=== PATIENT | male | born 1975 | race Caucasian/White ===

== ENCOUNTER 2020-07-19 08:00 | Outpatient (RCR) | payer OTHER, SELFPAY | END 2020-07-20 10:34 | disposition home or self-care (01) | LOC: HO.PTCHIC 08:00 | PROVIDERS: PCP Pediatrics; Visit Provider Physician Assistant | DX: M54.2 Cervicalgia (principal); R20.2 Paresthesia of skin | CPT/HCPCS: 97012; 97014; 97110; 97140; 97162 ==

== ENCOUNTER 2020-11-01 09:00 | Outpatient (RCR) | payer OTHER, SELFPAY | END 2020-11-04 11:35 | disposition home or self-care (01) | LOC: HO.PTCHIC 09:00 | PROVIDERS: PCP Internal Medicine; Visit Provider Internal Medicine | DX: M54.9 Dorsalgia, unspecified (principal) | CPT/HCPCS: 97014; 97110; 97140; 97161 ==

== ENCOUNTER 2020-12-26 22:09 | Emergency (ER) | payer OTHER, SELFPAY ==
--- NOTE | ~2020-12-26 | XR_ITS ---
EXAMINATION: XR HAND, RIGHT CLINICAL INFORMATION: Injury with pain to the right hand. Swelling. COMPARISON: 01/23/2017 TECHNIQUE: 3 views of the right hand FINDINGS: There is a comminuted intra-articular fracture at the base of the first metacarpal. Mild ulnar displacement of an articular fragment. Overlying soft tissue swelling. No additional fractures. Joint spaces are maintained. XR/XR hand wrist RT IMPRESSION: Comminuted intra-articular fracture at the base of the first metacarpal.
[2020-12-26 22:13] VITALS: BP 147/96; PULSE 104; RESP 18; TEMP 36.6; O2SAT 98; BMI 31.5
--- NOTE | 2020-12-26 23:01 | ED_ITS ---
HPI - Extremity Injury (Upper) General Chief Complaint: Extremity Injury, Lower Stated Complaint: rt hand thumb swollen Time Seen by Provider: 12/26/20 22:32 Source: patient Mode of arrival: ambulatory Limitations: no limitations History of Present Illness complaint: injury to: right, hand and finger (thumb) Onset (ago): minute(s) (Prior to arrival) Other Extremity Injury: right: fingers (thumb), hand and wrist Other injuries: none Handedness: right Place: home Severity: severe Severity scale (1-10): >10 Relieving factors: none Exacerbating factors: movement of extremity and other (Palpation) Context: other (He was upset and slammed the tray into a brick wall and is unsure how he sustained the injury although thinks that he might of himself with the tray) Associated symptoms: denies other symptoms Related Data Previous Rx's Medication Instructions Recorded acetaminophen 500 mg tablet 1,000 mg PO QID PRN #14 tab 12/26/20 (Tylenol Extra Strength) ibuprofen 800 mg tablet 800 mg PO Q8H PRN #14 tab 12/26/20 oxycodone 5 mg tablet 5 mg PO Q6H PRN #14 tab 12/26/20 Allergies Allergy/AdvReac Type Severity Reaction Status Date / Time No Known Allergies Allergy Verified 12/26/20 22:12 [No Known Allergies*] Review of Systems Review of Systems: Constitutional : No Weight loss, No Fever, No Chills, No Night Sweats, No Fatigue, No Malaise ENT/Mouth : No Hearing loss, No Ear Pain, No Nasal Congestion, No Sinus Pain, No Hoarseness, No sore throat, No Rhinorrhea, No Swallowing Difficulty Eyes: No Eye Pain, No Swelling, No Redness, No Foreign Body, No Discharge, No Vision Changes Cardiovascular : No Chest Pain, No SOB, No Dyspnea on Exertion, No Orthopnea, No Edema, No Palpitations Respiratory : No Cough, No Sputum, No Wheezing, No Smoke Exposure, No Dyspnea Gastrointestinal : No Nausea, No Vomiting, No Diarrhea, No Constipation, No abdominal Pain, No Hematochezia, No Melena Genitourinary : no irregular bleeding, No Dysuria, No Urinary Frequency, No Hematuria, No Urinary Incontinence, No Urgency, No Flank Pain, No Urinary Flow Changes, No Hesitancy Musculoskeletal : + right hand and wrist joint pain/swelling, No Myalgias Skin : No Skin Lesions, No rash Neuro : No Weakness, No Numbness, No Paresthesias, No Loss of Consciousness, No Dizziness, No Headache Psych : No Anxiety/Panic, No Depression, No SI/HI/AH/VH, No Social Issues, Heme/Lymph: No Bruising, No Bleeding,No Lymphadenopathy Endocrine : No Polyuria, No Polydipsia, No Temperature Intolerance Yes all other systems are reviewed and are negative [facility] Past Medical History Attestation statement: The following information was validated with the patient. Social History Social History Advance Directives: No Physical Exam Vital Signs: Vital Signs: Last Vital Signs Temp 97.9 F 12/26/20 22:13 Pulse 104 H 12/26/20 22:13 Resp 18 12/26/20 22:13 BP 147/96 H 12/26/20 22:13 Pulse Ox 98 12/26/20 22:13 Body Mass Index 31.5 vital signs have been reviewed as normal and appeared to be correct. Blood pressure normal Heart rate normal. Respiration rate normal. Temperature normal. Oxygen saturation normal. Appearance: Alert. Oriented X3. No acute distress. Head: Normal external exam. Normocephalic. Atraumatic. Eyes: PERRLA. EOMI. Conjunctiva and sclera normal. Eyelids normal. ENT: Pharynx normal. Uvula midline. Moist mucous membranes. Neck: Normal inspection. Neck supple. FROM. CVS: Normal heart rate and rhythm. Respiratory: No respiratory distress. Painless inspiration. Skin: Skin warm and dry. Normal skin color. Normal skin turgor. No rashes/lesions/lacerations noted. Extremities: Patient with severe tenderness to palpation to right thumb at the proximal radial aspect of the thumb and the radial aspect of the wrist with limited range of motion of the right wrist/thumb with soft tissue swelling. No ecchymoses noted. No obvious ligamentous or tendon injury. Not consistent with wrist drop. Otherwise he has full range of motion of all other fingers. Otherwise all other Extremities exhibit normal range of motion. and nontender. Neuro: Oriented X 3. No motor deficit. No sensory deficit. Reflexes normal. Normal steady gait. No focal neuro deficits noted. Vascular: + radial pulses/+ 2 distal pedal pulses/+2 dorsalis pedis b/l. Normal cap refill. No cyanosis noted to upper extremity nails and lower extremity toes nails. Course Course Course Narrative: 45-year-old male presenting to the ED with complaints of right hand/thumb/wrist pain after he slammed the tray into a withdrawal after being upset. Denies head injury or loss of consciousness or any other injury complaints or concerns. X-ray obtained and revealed a comminuted intra- articular fracture at the base of the 1st metacarpal. He is neurovascularly intact. No signs of infection. He is up-to-date on tetanus. No obvious ligamentous or tendon injury. Not consistent with wrist drop. He is right-hand dominant. I consulted with orthopedic Dr. Gutierres is the hand surgeon and she reported that he will need outpatient surgery therefore will place in a thumb spica treat symptomatically and instructed to call Dr. Gutierres is office this week to follow-up for outpatient surgery. And to return if any new or worsening symptoms. Patient understands agrees with this plan. MDM - Extremity Injury (Upper) Medical Records Attestation: I reviewed the patient's medical records. Imaging Data Right hand/wrist x-ray: Attestation: I personally reviewed and interpreted this imaging study as follows: Radiologist's impression: FINDINGS: There is a comminuted intra-articular fracture at the base of the first metacarpal. Mild ulnar displacement of an articular fragment. Overlying soft tissue swelling. No additional fractures. Joint spaces are maintained. XR/XR hand wrist RT IMPRESSION: Comminuted intra-articular fracture at the base of the first metacarpal.? Procedures Orthopedic Splinting/Casting Injury #1: Side: right Upper Extremity Injury Location: wrist, hand and finger Upper Extremity Immobilizer: thumb spica Discharge Plan Discharge Clinical Impression: Fracture of first metacarpal bone of right hand Qualifiers: Encounter type: initial encounter Fracture type: closed Metacarpal location: base Fracture morphology: other fracture Fracture alignment: displaced Qualified Code(s): S62.231A - Other displaced fracture of base of first metacarpal bone, right hand, initial encounter for closed fracture Patient Disposition: Home, Self-Care Instructions: Hand Fracture (ED), Splint Care (ED) Additional Instructions: TECHNIQUE: 3 views of the right hand? FINDINGS: There is a comminuted intra-articular fracture at the base of the first metacarpal. Mild ulnar displacement of an articular fragment. Overlying soft tissue swelling. No additional fractures. Joint spaces are maintained. XR/XR hand wrist RT IMPRESSION: Comminuted intra-articular fracture at the base of the first metacarpal.? Prescriptions: New ibuprofen 800 mg tablet 800 mg PO Q8H PRN (Reason: pain) Qty: 14 RF: 0 acetaminophen [Tylenol Extra Strength] 500 mg tablet 1,000 mg PO QID PRN (Reason: fever or pain) Qty: 14 RF: 0 oxycodone 5 mg tablet 5 mg PO Q6H PRN (Reason: pain) Qty: 14 RF: 0 Referrals: Christine Newell MD [Physician] - 1 day (Call tomorrow to make a follow-up appointment this week) Romulo Julian MD [Primary Care Provider] - 2 days Stand Alone Forms: Work/School Release Print Language: Frisian
[2020-12-26] MEDS: Ibuprofen 800 MG TABLET PO (23:16)
== END 2020-12-26 23:51 | disposition home or self-care (01) ==
PROVIDERS: Emergency Provider Internal Medicine; PCP Pediatrics
DX: S62.231A Other displaced fracture of base of first metacarpal bone, right hand, initial encounter for closed fracture (principal); M79.641 Pain in right hand; Y29.XXXA Contact with blunt object, undetermined intent, initial encounter; Y93.9 Activity, unspecified; Y92.9 Unspecified place or not applicable; Y99.9 Unspecified external cause status; Z79.899 Other long term (current) drug therapy
CPT/HCPCS: 29125; 73110; 73130; 99284

== ENCOUNTER 2020-12-28 11:02 | Outpatient (REF) | payer OTHER, SELFPAY ==
--- NOTE | ~2020-12-28 | XR_ITS ---
EXAMINATION: XR HAND, RIGHT CLINICAL INFORMATION: Fracture COMPARISON: Previous x-ray most recent 12/26/2020 TECHNIQUE: PA, lateral, and oblique views of the right thumb FINDINGS: There is a comminuted minimally displaced fracture of the base of the first metacarpal bone intra-articular with the [facility] joint. This appears unchanged from 12/26/2020 exam. There is a lucency and peripheral or sclerosis or cortical thickening in the mid portion of the scaphoid bone. Appearance is questionable for changes related to old trauma.. Soft tissues are unremarkable. XR/XR hand RT min 3V IMPRESSION: No change in fracture of the base of the first metacarpal bone from previous exam. Question evidence of old trauma to the scaphoid bone.
--- NOTE | ~2020-12-28 | XR_ITS ---
EXAMINATION: XR WRIST CLINICAL INFORMATION: M25.531 - Pain in right wrist COMPARISON: Right hand 12/28/2020, right hand wrist 12/26/2020. TECHNIQUE: The right wrist is imaged and 4 views including scaphoid projection. FINDINGS: There is a comminuted fracture again noted base first metacarpal with extension to the articular surface and mild angulation distal fragment. Alignment is similar to prior studies. The remainder the bony structures appear intact. There are no additional fractures. The scaphoid shows no acute or healing fracture. There is a small benign-appearing cyst mid waist navicular measuring just under 5 mm. The ulnar variance is neutral. The pronator quadratus fat pad appears normal. XR/XR wrist RT w scaphoid IMPRESSION: 1. Comminuted fracture base first metacarpal similar in alignment to prior studies. 2. No additional fractures demonstrated. 3. Small benign cyst mid waist carpal navicular.
== END 2020-12-28 11:03 | disposition home or self-care (01) ==
LOC: HO.HOSX 11:02
PROVIDERS: Visit Provider Orthopaedic Surgery
DX: Z01.818 Encounter for other preprocedural examination (principal); S62.211A Bennett's fracture, right hand, initial encounter for closed fracture; M25.531 Pain in right wrist
CPT/HCPCS: 73110; 73130; 99202

== ENCOUNTER 2021-01-04 12:23 | Day surgery (SDC) | payer OTHER, SELFPAY ==
--- NOTE | 2021-01-03 13:31 | HO.ANESPROP2 ---
Documented by User: Melia Mcleod NP 01/03/21 13:31 HPI - Anesthesia Eval Consult details Narrative: 45yo M for Right 1st Metacarpal ORIF vs CRPP PMFSH Active Problems Active Problems: All Active Problems (Updated 12/28/20 @ 16:28 by Christine Newell MD) Hernandez fracture of right hand (Acute) Social History Social History Patient Tobacco Use Status: Never used Tobacco Use of substances other than those prescribed or required for medical reasons: Yes Substance Use Frequency: Daily Are you DNR?: No Advance Directives: No Advance Directives Information Provided: Yes Current occupational status: unemployed 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 Meds Allergies Allergy/AdvReac Type Severity Reaction Status Date / Time No Known Allergies Allergy Verified 01/04/21 12:49 [No Known Allergies*] Home Medications Medication Instructions Recorded Confirmed Last Taken Type levothyroxine DAILY MRX1 01/04/21 01/04/21 06:00 History Exam Exam Date and Time: January 03, 2021 133 Assessment and Plan Assessment Anesthesia Assessment: Chart Reviewed Documented by User: Seferino Carpio MD 01/04/21 14:30 PMFSH Family History Family history of problems with anesthesia: No Surgical History History of Problems with Anesthesia: No Social History Social History Patient Tobacco Use Status: Never used Tobacco Use of substances other than those prescribed or required for medical reasons: Yes Substance Use Frequency: Daily Are you DNR?: No Advance Directives: No Advance Directives Information Provided: Yes Current occupational status: unemployed 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 Meds Allergies Allergy/AdvReac Type Severity Reaction Status Date / Time No Known Allergies Allergy Verified 01/04/21 12:49 [No Known Allergies*] Home Medications Medication Instructions Recorded Confirmed Last Taken Type levothyroxine DAILY MRX1 01/04/21 01/04/21 06:00 History Exam Airway Mallampati Class: II TM Dist: >3cm Neck ROM: Full Loose/Missing/Broken Teeth: No Heart: rrr+[id number] Lungs: cta b/l Assessment and Plan Assessment Anesthesia Assessment: Anesthesia Plan Discussed Final Anesthetic Review Family History of Problems with Anesthesia: No History of Problems with Anesthesia: No NPO: Yes ASA Class: II Final Preanesthetic Review: No Changes in Pt Med Stat, Meds/Allgs Chart Reviewed, Consent Obtained/Reviewed and Anes Risks/Benef Reviewed Patient Risk: Intermediate Procedure Risk: Low Assessment/Block/Sedation in SS: Assess/Block/Sedation-SS Anesthetic Plan Anesthetic Plan: GA and Agree w/ Assess. and Plan Disposition: Standard PACU
[2021-01-04] VITALS (9 sets, daily range): BP systolic 126–159; BP diastolic 81–100; PULSE 67–78; RESP 16–20; TEMP 36.3–36.7; O2SAT 94–99; BMI 31.5
--- NOTE | ~2021-01-04 | FL_ITS ---
EXAMINATION: XR FLUOROSCOPY WITH IMAGES CLINICAL INFORMATION: Fracture COMPARISON: Previous x-ray 12/28/2020 TECHNIQUE: Fluoroscopy performed by Bhavik. Fluoroscopy time: 106 seconds DAP: [id number] Gycm2 Images: 6 FINDINGS: Images demonstrate 3 K wires or pins transfixing the fracture of the base of the first metacarpal bone. FL/FL guidance in OR IMPRESSION: Fluoroscopic guidance for ORIF of right first metacarpal fracture.
[2021-01-04] MEDS: Lactated Ringers 1,000 ML 100 ML IVCONT (13:27)
--- NOTE | 2021-01-04 15:32 | MHC.SHP ---
Pre-Procedural Eval Section A Date of Service: 01/04/21 The patient is an INPATIENT: No Changes since office visit: No Cold of Flu in the past 2 weeks, No New Medical Problems, No Changes in Medication and No Patient answered all questions The History & Physical has been completed within 30 days and I have reviewed it.: Yes Section B Chief Complaint: fx metacarpal bone Allergies: Allergies Allergy/AdvReac Type Severity Reaction Status Date / Time No Known Allergies Allergy Verified 01/04/21 12:49 [No Known Allergies*] Plan I have reviewed the history and physical and performed a pertinent physical examination on my patient. No changes have occurred unless specified.
--- NOTE | 2021-01-04 15:33 | W.PM.OPN ---
Operative Note Operative Note Date of Service: 01/04/21 Narrative: Operative Note Narrative: Preop diagnosis: 1. Right 1st Metacarpal base fracture, intra-articular and comminuted Postop diagnosis: Same Procedure: 1. Right 1st Metacarpal base fracture closed reduction percutaneous pinning Surgeon: Christine Newell MD Anesthesia: General Findings: Metacarpal fracture Implants: 0.062 K-wires times 1, 0.054 K-wire x1, 0.045 K-wire x1 Tourniquet time: None EBL: Minimal Specimen: None Drains: None Complications: None Disposition: Brought to the recovery room in stable condition Plan: Follow-up in 10-14 days for a wound check, postop radiographs and for placement in a short-arm thumb spica cast Anticipate K-wire removal in 5 weeks based on interval bony healing Educate the patient that full fracture healing anticipated in approximately 8-12 weeks. Indications: The patient is 45 years old with a closed intra-articular comminuted fracture of the right 1st metacarpal base . The risks and benefits of operative treatment, including but not limited to risk of damage to blood vessels, nerves, tendons, infection, recurrence, delayed or nonunion of fracture, persistent pain or numbness, incomplete resolution of preoperative symptoms, or need for further surgery were discussed with the patient and they wished to proceed with surgery. Procedure: Once consent was obtained patient was brought back to the operating suite and placed in the operating table in a supine position. . Perioperative antibiotics and general anesthesia was administered by the anesthesia team. A tourniquet was applied to the proximal aspect of the right upper extremity and the limb was prepped and draped in a standard surgical fashion. The Tourniquet was not inflated during the case. The FluoroScan was used during the case to assist with our fracture reduction and placement of all implants. A closed reduction was performed on the patient's right 1st metacarpal base fracture. While holding the fracture in a reduced position I placed a single 0.062 K-wire retrograde through the shaft of the 1st metacarpal extending proximally across the fracture site to the base of the 1st metacarpal, then across the basal joint and into the trapezium. A 0.045 K-wire was placed in the dorsal shaft of the 1st metacarpal and advanced retrograde and volarly, capturing the volar articular fragment. A 0.054 K-wire was then passed through the ulnar aspect of the shaft, retrograde and across the transverse fracture site to the base of the 1st metacarpal, then advanced across the basal joint and into the trapezium. Fracture alignment was assessed for both angular and rotational malalignment. Once satisfied with our fracture reduction and implant placement, the K-wires were bent and cut short and pin caps applied. Final fluoroscopic images were then obtained. The wounds were copiously irrigated with normal saline. Some 1% lidocaine with epinephrine was then infiltrated about the basal joint of the right thumb, and then across the base of the thumb performing a block of the superficial radial nerve to the dorsal aspect of the thumb. ASterile dressing and short arm thumb spica splint was applied. The patient appears to have tolerated the procedure well and with no complications. All digits were well vascularized at the conclusion of the case.
[2021-01-04] MEDS: fentaNYL citrate/PF 100 MCG/2 ML VIAL 50 MCG IVPUSH ×2 (15:55→16:00)
[2021-01-04] MEDS: oxyCODONE HCl Immed Release 5 MG TABLET 10 MG PO (15:57)
== END 2021-01-04 16:39 | disposition home or self-care (01) ==
PROVIDERS: PCP Pediatrics; Visit Provider Orthopaedic Surgery
PROC: (CPT 26615; principal; 2021-01-04 14:00)
DX: S62.221A Displaced Rolando's fracture, right hand, initial encounter for closed fracture (principal); W22.09XA Striking against other stationary object, initial encounter; Y93.89 Activity, other specified; Y92.9 Unspecified place or not applicable; Y99.8 Other external cause status; J45.909 Unspecified asthma, uncomplicated
CPT/HCPCS: 26650; J0690; J1100; J1170; J2250; J2405; J3010

== ENCOUNTER 2021-01-16 12:47 | Outpatient (REF) | payer OTHER, SELFPAY ==
--- NOTE | ~2021-01-16 | XR_ITS ---
EXAMINATION: XR HAND, RIGHT CLINICAL INFORMATION: Right hand pain. COMPARISON: 12/28/2020 TECHNIQUE: PA, lateral, and oblique views of the right hand. FINDINGS: Since the prior exam which demonstrated a comminuted displaced fracture at the base of the 1st metacarpal with extension into the [facility] joint, 3 pins have been placed through the metacarpal, 2 of which extend into the greater multangular. A plaster splint is in place obscuring some detail. No new fractures are seen. A cyst is noted in the scaphoid. XR/XR hand RT min 3V IMPRESSION: Postoperative changes with 3 pins through the 1st metacarpal fracture.
== END 2021-01-16 12:48 | disposition home or self-care (01) ==
LOC: HO.HOSX 12:47
PROVIDERS: Visit Provider Physician Assistant
DX: S62.221D Displaced Rolando's fracture, right hand, subsequent encounter for fracture with routine healing (principal)
CPT/HCPCS: 29085; 73130; 99212

== ENCOUNTER 2021-01-18 08:25 | Outpatient (REF) | payer OTHER, SELFPAY | END 2021-01-18 08:26 | disposition home or self-care (01) | LOC: HO.HOSX 08:25 | PROVIDERS: Visit Provider Orthopaedic Surgery | DX: Z13.89 Encounter for screening for other disorder (principal) ==

== ENCOUNTER 2021-01-21 05:24 | Emergency (ER) | payer OTHER, SELFPAY ==
--- NOTE | ~2021-01-21 | XR_ITS ---
EXAMINATION: XR HAND, RIGHT CLINICAL INFORMATION: Shooting pain around the palm. COMPARISON: January 16, 2021 and studies dating back to December 26, 2020 TECHNIQUE: PA, lateral, and oblique views of the right hand. FINDINGS: Imaging through a cast performed. There has been no change in alignment of the fractured base of the first metacarpal with [address] Fracture line is not well seen with overlying cast. XR/XR hand RT 2V IMPRESSION: No change in alignment or appearance of fracture base of the first metacarpal.
[2021-01-21 05:38] VITALS: BP 123/88; PULSE 73; RESP 18; TEMP 36.3; O2SAT 96; BMI 68.0
--- NOTE | 2021-01-21 08:02 | ED.EXTPRO ---
HPI - Extremity Problem General Chief complaint: Extremity Injury, Upper Stated complaint: post surgery complication/thumb pain Time Seen by Provider: 01/21/21 05:27 Source: patient Mode of arrival: ambulatory Limitations: no limitations History of Present Illness HPI Narrative: This is a 45 years old male presented to the emergency department complaining of of right hand pain. The pain fracture or is a right 1st metacarpal bone he underwent surgery on January 06, he was seen in the orthopedic clinic on SaturdayJanuary 16 his cast was removed and the another cast was placed. He states that he has pain now that he is unbearable Complaint: extremity pain Onset (ago): minute(s) Pain Consistency: constant Location: right and upper extremity Relieving factors: nothing Related Data Home Medications Medication Instructions Recorded Confirmed levothyroxine DAILY MRX1 01/04/21 Previous Rx's Medication Instructions Recorded acetaminophen 500 mg tablet 1,000 mg PO QID PRN #14 tab 12/26/20 (Tylenol Extra Strength) ibuprofen 800 mg tablet 800 mg PO Q8H PRN #14 tab 12/26/20 oxycodone 5 mg tablet 5 mg PO Q6H PRN #14 tab 12/26/20 ibuprofen 600 mg tablet 600 mg PO TID PRN #30 tab 01/04/21 oxycodone-acetaminophen 5 mg-325 1 - 2 tab PO Q6H PRN #30 tab 01/04/21 mg tablet cephalexin 500 mg capsule 500 mg PO Q8H #21 cap 01/21/21 oxycodone 5 mg capsule 5 mg PO Q8H PRN #12 cap 01/21/21 Allergies Allergy/AdvReac Type Severity Reaction Status Date / Time No Known Allergies Allergy Verified 01/16/21 14:03 [No Known Allergies*] Review of Systems Constitutional: Constitutional: Reports no additional constitutional complaints ENT: Reports system reviewed and no additional complaints, except as documented Cardiovascular: Cardiovascular: Reports no additional cardiovascular complaints and Denies dyspnea Respiratory: Respiratory: Denies dyspnea Musculoskeletal: Musculoskeletal: Reports no additional musculoskeletal complaints Psychiatric: Psychiatric: Reports no additional psychiatric complaints PMFSH Social History Social History Patient Tobacco Use Status: Never used Tobacco Advance Directives: No Advance Directives Information Provided: Yes Current occupational status: unemployed 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 Physical Exam Vital Signs: Vital Signs: Last Vital Signs Temp 98.2 F 01/21/21 09:59 Pulse 63 01/21/21 09:59 Resp 16 01/21/21 09:59 BP 117/88 01/21/21 09:59 Pulse Ox 96 01/21/21 09:59 BMI result Body Mass Index 68.0 Const: General: cooperative, healthy appearing, comfortable and no acute distress Nutritional Appearance: average body habitus Orientation/consciousness: patient oriented x3 HENMT: Head: Yes normal to inspection Face and sinus: Yes normal facial exam Mouth: Normal oral and palatal mucosa present Throat: Yes posterior oropharynx normal Neck: Neck: Yes normal visual inspection, Yes full ROM and Yes no lymphadenopathy Chest: Chest palpation & inspection: normal inspection of the chest Resp: Effort & Inspection: normal respiratory effort Auscultation: clear to auscultation bilaterally Cardio: Jugular venous distension: no JVD Rate: regular rate Rhythm: regular rhythm GI: Inspection: Yes normal to inspection Palpation (GI): Soft to palpation, nontender and no guarding Neuro: General: patient oriented x3 Extrem: Other: Examination the right upper extremity shows a right short arm cast he has good circulation in the finger Course Course Course Narrative: spoke with Ortho service ASUNCION Roman she advised to open cast ,cast was opened bivalve,wound looks well ,we send picture of the wound to ELENITA ROLAND via tiger text ; OK to d/c she will see pt Saturday she reccomend also po AB MDM - Extremity (Nontraumatic) Imaging Data hand: Radiologist's impression: EXAMINATION: XR HAND, RIGHT CLINICAL INFORMATION: Shooting pain around the palm.? COMPARISON: January 16, 2021 and studies dating back to December 26, 2020 TECHNIQUE: PA, lateral, and oblique views of the right hand. FINDINGS: Imaging through a cast performed. There has been no change in alignment of the fractured base of the first metacarpal with [address] Fracture line is not well seen with overlying cast. XR/XR hand RT 2V IMPRESSION: No change in alignment or appearance of fracture base of the first metacarpal. Dictated By: Varghese Butts MD Signed By: <Electr Discharge Plan Discharge Clinical Impression: Cast discomfort, Fracture of hand, closed Patient Disposition: Home, Self-Care Instructions: Cast Care (ED) Prescriptions: New oxycodone 5 mg capsule 5 mg PO Q8H PRN (Reason: pain) Qty: 12 RF: 0 cephalexin 500 mg capsule 500 mg PO Q8H Qty: 21 RF: 0 No Action ibuprofen 800 mg tablet 800 mg PO Q8H PRN (Reason: pain) Qty: 14 RF: 0 acetaminophen [Tylenol Extra Strength] 500 mg tablet 1,000 mg PO QID PRN (Reason: fever or pain) Qty: 14 RF: 0 oxycodone 5 mg tablet 5 mg PO Q6H PRN (Reason: pain) Qty: 14 RF: 0 levothyroxine 150 mg tablet DAILY MRX1 RF: 0 oxycodone-acetaminophen 5-325 mg tablet 1 - 2 tab PO Q6H PRN (Reason: pain) Qty: 30 RF: 0 ibuprofen 600 mg tablet 600 mg PO TID PRN (Reason: pain) Qty: 30 RF: 0 Referrals: Christine Newell MD [Physician] - 2 days Interventions: ED Discharge Assessment Last Done: 01/21/21 10:41 Discharge Date/Time: 01/21/21 10:44
[2021-01-21] MEDS: oxyCODONE HCl Immed Release 5 MG TABLET 10 MG PO (08:08)
[2021-01-21 09:59] VITALS: BP 117/88; PULSE 63; RESP 16; TEMP 36.8; O2SAT 96
== END 2021-01-21 10:44 | disposition home or self-care (01) ==
PROVIDERS: Emergency Provider Emergency Medicine; PCP Pediatrics
DX: M79.641 Pain in right hand (principal); S62.201D Unspecified fracture of first metacarpal bone, right hand, subsequent encounter for fracture with routine healing; X58.XXXD Exposure to other specified factors, subsequent encounter; Z46.89 Encounter for fitting and adjustment of other specified devices
CPT/HCPCS: 73120; 99283; 99284

== ENCOUNTER → 2021-01-23 12:52 | Outpatient (BNVA) | payer OTHER, SELFPAY | PROVIDERS: PCP Pediatrics; Visit Provider Physician Assistant | DX: S62.221D Displaced Rolando's fracture, right hand, subsequent encounter for fracture with routine healing (principal) | CPT/HCPCS: 99212 ==

== ENCOUNTER 2021-02-06 03:17 | Emergency (ER) | payer OTHER, SELFPAY ==
--- NOTE | ~2021-02-06 | XR_ITS ---
EXAMINATION: XR HAND, RIGHT CLINICAL INFORMATION: Question fracture COMPARISON: 01/21/2021 TECHNIQUE: Four views of the right hand. FINDINGS: Fine osseous and soft tissue detail are obscured by overlying casting material. [address] at the base of the first metacarpal fracture. Hardware intact. Alignment maintained. There may be slight widening of the scapholunate interval. This is unchanged. No new fractures are seen. XR/XR hand RT min 3V IMPRESSION: Fixation hardware at the first metacarpal. Alignment is maintained. No new fractures.
[2021-02-06 04:34] VITALS: BP 141/90; PULSE 75; RESP 18; TEMP 36.3; O2SAT 98; BMI 25.8
--- NOTE | 2021-02-06 07:34 | ED.EXTPRO ---
HPI - Extremity Problem General Chief complaint: Extremity Injury, Upper Stated complaint: further injury to broken arm Time Seen by Provider: 02/06/21 07:19 Source: patient Mode of arrival: ambulatory Limitations: no limitations History of Present Illness MD Complaint: joint paint Onset (ago): day(s) (yesterday) Pain Consistency: constant Location: right and other (hand) Quality: aching Radiation: none Relieving factors: nothing Exacerbating factors: range of motion Associated symptoms: denies other symptoms Context: other (accidentally struck in hand by a child) Related Data Home Medications Medication Instructions Recorded Confirmed levothyroxine DAILY MRX1 01/04/21 Previous Rx's Medication Instructions Recorded acetaminophen 500 mg tablet 1,000 mg PO QID PRN #14 tab 12/26/20 (Tylenol Extra Strength) ibuprofen 800 mg tablet 800 mg PO Q8H PRN #14 tab 12/26/20 oxycodone 5 mg tablet 5 mg PO Q6H PRN #14 tab 12/26/20 ibuprofen 600 mg tablet 600 mg PO TID PRN #30 tab 01/04/21 oxycodone-acetaminophen 5 mg-325 1 - 2 tab PO Q6H PRN #30 tab 01/04/21 mg tablet cephalexin 500 mg capsule 500 mg PO Q8H #21 cap 01/21/21 oxycodone 5 mg capsule 5 mg PO Q8H PRN #12 cap 01/21/21 Allergies Allergy/AdvReac Type Severity Reaction Status Date / Time No Known Allergies Allergy Verified 01/23/21 13:00 [No Known Allergies*] Review of Systems Review of Systems: Constitutional : No Fever, No Chills ENT/Mouth : No Ear Pain, No Hoarseness, No sore throat Eyes: No Eye Pain, No Swelling, No Redness, No Foreign Body Cardiovascular : No Chest Pain, No SOB Respiratory : No Cough, No Dyspnea Gastrointestinal : No Nausea, No Vomiting, No Diarrhea, No abdominal Pain Genitourinary : No Dysuria, No Hematuria Musculoskeletal : positive joint pain, No Myalgias, No Joint Swelling Skin : No Skin lacerations, No rash Neuro : No Weakness, No Numbness PMFSH Past Medical History Attestation statement: The following information was validated with the patient. 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 Oriented X3. No acute distress. Eyes: Pupils equal, round and reactive to light. ENT: Pharynx normal. Neck: Normal inspection. Neck supple. CVS: Pulses normal. Respiratory: No respiratory distress. Abdomen: atraumatic Skin: Skin warm and dry. Normal skin color. Extremities: R hand in casting - all fingers warm and well perfused, BCR, normal color, full ROM, pain at tip of thumb reports some pain at forearm as well. no signs of swelling Neuro: Oriented X 3. No motor deficit. No sensory deficit. MDM - Extremity (Nontraumatic) MDM Narrative Medical decision making narrative: 45 yo male with recent R hand injury requiring pinning (sparkle fracture) 01/04 - states a child directly went into his R thumb yesterday he is distal NV intact has splint on xray negative - at this time it is Saturday he needs to call his surgeon today - pain control and discussed seeing his surgeon JIMBO today. I have no compromising signs on my exam and xray is negative. Discharge Plan Discharge Clinical Impression: Injury of hand, right Qualifiers: Encounter type: initial encounter Qualified Code(s): S69.91XA - Unspecified injury of right wrist, hand and finger(s), initial encounter Patient Disposition: Home, Self-Care Instructions: Arm Pain (ED) Additional Instructions: return to ED for any worsening symptoms or concerns YOU NEED TO SEE DR. TRAN SOON POSSIBLE TODAY XRAY NEGATIVE Prescriptions: No Action ibuprofen 800 mg tablet 800 mg PO Q8H PRN (Reason: pain) Qty: 14 RF: 0 acetaminophen [Tylenol Extra Strength] 500 mg tablet 1,000 mg PO QID PRN (Reason: fever or pain) Qty: 14 RF: 0 oxycodone 5 mg tablet 5 mg PO Q6H PRN (Reason: pain) Qty: 14 RF: 0 levothyroxine 150 mg tablet DAILY MRX1 RF: 0 oxycodone-acetaminophen 5-325 mg tablet 1 - 2 tab PO Q6H PRN (Reason: pain) Qty: 30 RF: 0 ibuprofen 600 mg tablet 600 mg PO TID PRN (Reason: pain) Qty: 30 RF: 0 oxycodone 5 mg capsule 5 mg PO Q8H PRN (Reason: pain) Qty: 12 RF: 0 cephalexin 500 mg capsule 500 mg PO Q8H Qty: 21 RF: 0 Stand Alone Forms: Work/School Release
[2021-02-06] MEDS: Morphine Sulfate Immed Release 15 MG TABLET PO (07:48)
== END 2021-02-06 07:52 | disposition home or self-care (01) ==
PROVIDERS: Emergency Provider Emergency Medicine; PCP Pediatrics
DX: S69.91XA Unspecified injury of right wrist, hand and finger(s), initial encounter (principal); W50.0XXA Accidental hit or strike by another person, initial encounter; Y93.9 Activity, unspecified; Y92.9 Unspecified place or not applicable; Y99.9 Unspecified external cause status
CPT/HCPCS: 73130; 99212; 99283

== ENCOUNTER 2021-02-06 14:17 | Outpatient (REF) | payer OTHER, SELFPAY ==
--- NOTE | ~2021-02-06 | XR_ITS ---
EXAMINATION: XR HAND, RIGHT at 2:29 PM CLINICAL INFORMATION: Right hand pain. COMPARISON: Same date at 5:03 AM. TECHNIQUE: PA, lateral, and oblique views of the right hand. FINDINGS: Three K-wires across the 1st metacarpal base fracture are unchanged in alignment. Two-K wires cross the 1st CMC joint. Alignment of the metacarpal base fragment appears near-anatomic. Soft tissues are swollen. Scapholunate interval measures 4 mm, unchanged . XR/XR hand RT min 3V IMPRESSION: Unchanged alignment of the thumb metacarpal base fracture status post K-wire fixation.
== END 2021-02-06 14:18 | disposition home or self-care (01) ==
LOC: HO.HOSX 14:17
PROVIDERS: Visit Provider Physician Assistant
DX: S69.91XA Unspecified injury of right wrist, hand and finger(s), initial encounter (principal); S62.501D Fracture of unspecified phalanx of right thumb, subsequent encounter for fracture with routine healing
CPT/HCPCS: 73130; 87071; 87077; 87186; 87205

== ENCOUNTER → 2021-02-07 08:49 | Outpatient (BNVA) | payer OTHER, SELFPAY | PROVIDERS: PCP Pediatrics; Visit Provider Orthopaedic Surgery | DX: S62.221D Displaced Rolando's fracture, right hand, subsequent encounter for fracture with routine healing (principal) | CPT/HCPCS: 99212 ==

== ENCOUNTER 2021-02-08 08:26 | Outpatient (REF) | payer OTHER, SELFPAY ==
--- NOTE | ~2021-02-08 | XR_ITS ---
EXAMINATION: XR HAND, RIGHT CLINICAL INFORMATION: Pain COMPARISON: 02/06/2021 TECHNIQUE: PA, lateral, and oblique views of the right hand. FINDINGS: Interval removal of transfixing pins about the first metacarpal base fracture. The fracture lines are still evident with periosteal new bone formation suggesting partial healing. No new findings. Soft tissue swelling. Healing/healed deformity of the mid scaphoid again noted as well. XR/XR hand RT min 3V IMPRESSION: As above.
== END 2021-02-08 08:27 | disposition home or self-care (01) ==
LOC: HO.HOSX 08:26
PROVIDERS: Visit Provider Orthopaedic Surgery
DX: S62.221D Displaced Rolando's fracture, right hand, subsequent encounter for fracture with routine healing (principal)
CPT/HCPCS: 73130; 99212

== ENCOUNTER 2021-02-22 10:35 | Outpatient (REF) | payer OTHER, SELFPAY ==
--- NOTE | ~2021-02-22 | XR_ITS ---
EXAMINATION: XR HAND, RIGHT CLINICAL INFORMATION: Right hand pain. COMPARISON: Radiographs of the right hand done on 02/08/2021 and 02/06/2021. TECHNIQUE: PA, lateral, and oblique views of the right hand. 3 views of the right thumb were also obtained. FINDINGS: Mild osteoarthrosis is noted at the first carpometacarpal joint. Old healed fracture is noted at the base of the first metacarpal. Significant soft tissue swelling is noted overlying the posterior metacarpal and the adjacent part of the right wrist. Subcentimeter cyst is noted within the mid part of the scaphoid with scapholunate interval measuring approximately 4 mm, unchanged since 02/06/2021. Mild osteoarthrosis is noted at the radiocarpal joint. Otherwise unremarkable. XR/XR hand RT min 3V IMPRESSION: Mild osteoarthrosis of the first carpometacarpal joint and stable subcentimeter cyst within the mid part of the scaphoid and scapholunate interval measuring 4 mm, unchanged since prior study dated 02/08/2021. No new abnormalities.
== END 2021-02-22 10:36 | disposition home or self-care (01) ==
LOC: HO.HOSX 10:35
PROVIDERS: PCP Pediatrics; Visit Provider Orthopaedic Surgery
DX: S62.501D Fracture of unspecified phalanx of right thumb, subsequent encounter for fracture with routine healing (principal); S62.221D Displaced Rolando's fracture, right hand, subsequent encounter for fracture with routine healing
CPT/HCPCS: 73130; 99212

== ENCOUNTER 2021-03-27 07:30 | Outpatient (RCR) | payer OTHER, SELFPAY ==
--- NOTE | 2021-02-20 15:31 | MHC.OT.OEV ---
[address] [phone] F: [phone] Occupational Therapy Evaluation Diagnosis: BLESSING FRACTURE OF RIGHT HAND Date of Onset: 12/26/20 Date of Surgery: 01/04/21 Attending Provider: Christine Newell Prescribed Treatment: ARIAS CHRISTIANSEN Follow Up Appointment: 02/22/21 History of Current Condition: REPORTS HE WAS UPSET AND SLAMMED A TRAY INTO A CEMENT WALL. FOUND TO HAVE COMMINUTED INTRARTICULAR FRACTURE OF BASE OF 1ST CMP. UNDERWENT CRPP ON 01/04/[address] NEWELL. JOHN REMOVED ON 02/06/21. 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 MOSTLY STAY AT HOME DAD. Living Situation, Family and/or Social Support: LIVES WITH SPOUSE AND 13 Y/O CHILD Current Level of Function and Occupation Self Care, Employment, Leisure: REPORTS DIFFICULTIES WITH OPENING ITEMS/ JARS AND MEDICATION BOTTLES, TROUBLE WITH BUTTONING PANTS, ZIPPING SHIRT. LIGHT HOUSEHOLD TASKS LIKE WASHING DISHES WITH PAIN; NEEDS ASSIST WITH CARRYING ITEMS INCLUDING LAUNDRY BASKET. PAIN WITH CALKING AND LIGHT CONSTRUCTION TASKS. Sleep: REPORTS MODERATE DIFFICULTIES WITH SLEEPING; RESTLESS SLEEPER AT BASELINE Driving: SOME PAIN WITH TURNING SOLARES, NO DIFFICULTIES WITH HOLDING STEERING WHEEL Vision: WEARS GLASSES Pain Assessment Pain Score: 1-8/10 Pain Scale Used: Numeric (0 - 10) Pain Location and Description: R THUMB, 1DI 1-2/10 AT REST -10/06 WITH USE Aggravating Factors: PINCHING, GRIPPING, BUMPING THUMB INTO OBJECTS Alleviating Factors: RESTING, USING ICE/ FROZEN WATER BOTTLES Skin and Soft Tissue Assessment Skin and Soft Tissue: Redness Swelling Comments: THREE SMALL AREAS WHERE PINS WERE PLACED, HEALED WITH MILD REDNESS TO THE MOST LATERAL PIN SITE Sensory Assessment Temperature: Light Touch: WFL Proprioception: Vibration: Comments: INTACT TO 3.61 PER SEMMES LILY ASSESSMENT Edema Assessment Upper Extremity: Right Impaired Lower Extremity: Comments: FIGURE EIGHT: RIGHT 48.0, LEFT 47.5 CIRCUMFERENCE OF WRIST, DISTAL TO US: RIGHT 19.1 CM, LEFT 18.6 CM EDEMA NOTED TO BE MOST VISABLE TO RIGHT 1DI AND THENAR EMINENCE IN COMPARISON TO LEFT HAND Dexterity Assessment Dexterity: Right Impaired Comments: FUNCTIONAL DEXTERITY TEST: RIGHT 27 SECONDS (MOD FUNCTIONAL), LEFT 20 SECONDS AROM(PROM) Strength Elbow Flexion: Extension: Pronation: Supination: Comments: WFL Flexion: Extension: Pronation: Supination: Comments: Wrist Flexion: R 55, L 58 Extension: R 62, L 70 Ulnar Deviation: R 40, L 50 Radial Deviation: R 15, L 15 Comments: PAIN WITH R RADIAL DEVIATION Flexion: Extension: Ulnar Deviation: Radial Deviation: Comments: Thumb Thumb CMC Flexion: Thumb MCP Flexion: R 28, L 58 Thumb IP Flexion: R 46, L 78 Radial Abduction: Palmar Abduction: R 50, L 80 [place] ([place] 0-10): R 5/10, L 10/10 Comments: SUBMAX OPPOSITION R THUMB Digits Index MCP: PIP: DIP: Long MCP: PIP: DIP: Ring MCP: PIP: DIP: Small MCP: PIP: DIP: Comments: Gross Grasp: L 118 Lateral Pinch: L 24 Two-Point Pinch: L 13 Three-Jaw Magno: L 28 Comments: 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 Patient demonstrates Patient verbalizes Barriers to Learning: None Readiness for Learning: Accepting Who was educated? Patient Comments: Plan of Care Assessment: MR VANN IS SIX WEEKS POST OF CRPP FOR FRACTURE AT BASE OF 1ST MCP. HIS K-WIRES HAVE BEEN REMOVED AND HE HAS THREE CLOSED AREAS WHERE THE PINS WERE LOCATED. HE REPORTS THAT HIS SPOUSE RECENTLY BUMPED INTO HIS RIGHT HAND AND HE IS REPORTING INCREASED PAIN AND EDEMA IN HIS THUMB SINCE THAT OCCURRED. HE HAS A FOLLOW UP APPOINTMENT WITH DR NEWELL ON Saturday02/22/21. Pt MAY BENEFIT FROM A SPLINT AT A LATER DATE TO ASSIST WITH PROTECTION OF THUMB SINCE HE HAS HAD TWO OCCASIONS WHERE HE HAS BUMPED HIS HAND RESULTING IN INCREASED PAIN AND EDEMA. ONGOING SKILLED OT IS WARRANTED TO ADDRESS PAIN REDUCTION, ROM, STRENGTH, JOINT PROTECTION, EDEMA MANAGEMENT, AND ADL/IADL PARTICIPATION. A 66% LIMITATION IS REPORTED PER THE QUICK DASH ASSESSMENT. STG Duration: 3 WEEKS Short Term Goals: IND HEP IND EDEMA MANAGEMENT IND FOLLOW THROUGH WITH PRECAUTIONS IND USE OF HEAT/ICE INCREASE IP FLEX 60 DEGREES AND MP FLEX 40 DEGREES LTG Duration: 5 WEEKS Halfway Goals: QUICK DASH <40% IND PROGRESSION OF HEP TOLERATE LIFTING >10 POUNDS FOR IADLs WITH <4/10 PAIN REPORT MOSTLY PAINFREE AROM Frequency and Duration: The patient will be seen 2X/WEEK FOR 5 WEEKS Treatment Plan: Therapeutic Exercise Therapeutic Activity Home Exercise Program Splinting Neuro Re-ed Patient Education Desensitization/Sensory Re-ed Edema Control ADL Training Ultrasound NMES Iontophoresis Paraffin Fluidotherapy MHP Cold Packs Joint Mobilization Soft Tissue Mobilization Kinesiotaping Electronically Signed By: ALEJA TORRES OTR/L Reviewed/agree with student documentation: N/A Therapist: Please sign and return to therapist, Thank you for your referral.
--- NOTE | 2021-03-27 11:02 | MHC.OT.DC ---
[address] [phone] F: [phone] Occupational Therapy Discharge Note Provider: Christine Newell Diagnosis: BLESSING FRACTURE OF RIGHT HAND Date of Surgery: 01/04/21 Date of Evaluation: 02/20/21 Date of Discharge: 03/27/21 Treatments to Date: 9 Cancellations to Date: 1 No Shows to Date: 0 Discharge Status: Achieved Goals Improved Function Independent with HEP Discharge Summary: MR VANN HAS PROGRESSED WELL WITH HIS OT TREATMENTS. HE HAS RETURNED TO ADLs AND IADLs WITHOUT DIFFICULTIES. REPORTS GOOD UNDERSTANDING OF PROGRESSION OF HEP. 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 NO FUTHER OT WARRANTED AT THIS TIME. D/C OT SERVICES. Electronically Signed By: ALEJA TORRES OTR/[place] Reviewed/agree with student documentation: N/A Therapist: Please Sign and return to therapist, thank you for your referral.
== END 2021-03-27 11:00 | disposition home or self-care (01) ==
LOC: HO.OT 07:30
PROVIDERS: Visit Provider Orthopaedic Surgery
DX: S62.221D Displaced Rolando's fracture, right hand, subsequent encounter for fracture with routine healing (principal)
CPT/HCPCS: 29130; 97035; 97110; 97140; 97166; 97760

== ENCOUNTER 2021-03-29 08:20 | Outpatient (REF) | payer OTHER, SELFPAY ==
--- NOTE | ~2021-03-29 | XR_ITS ---
EXAMINATION: XR HAND, RIGHT CLINICAL INFORMATION: Right hand pain. COMPARISON: 02/22/2021 TECHNIQUE: PA view of the hand and AP, lateral, and oblique views of the thumb. FINDINGS: There has been progressive healing of the fracture at the thumb metacarpal base. Pin tracts from prior fixation are noted. Alignment appears appropriate. No new fractures. Mild arthrosis is again seen at the 1st CMC joint. Previously seen, there is cystic changes in the scaphoid. No acute fractures. XR/XR hand RT min 3V IMPRESSION: Progressive healing of the thumb metacarpal base fracture. No new, acute osseous findings. 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
== END 2021-03-29 08:21 | disposition home or self-care (01) ==
LOC: HO.HOSX 08:20
PROVIDERS: Visit Provider Orthopaedic Surgery
DX: S62.221D Displaced Rolando's fracture, right hand, subsequent encounter for fracture with routine healing (principal)
CPT/HCPCS: 73130; 99212

== ENCOUNTER 2021-12-14 13:49 | Emergency (ER) | payer OTHER, SELFPAY ==
--- NOTE | ~2021-12-14 | CT_ITS ---
EXAMINATION: CT ABDOMEN AND PELVIS WITH CONTRAST CLINICAL INFORMATION: Epigastric pain and vomiting COMPARISON: None TECHNIQUE: Multidetector volumetric images were obtained from the superior aspect of the liver through the pubic symphysis following administration 85 mL of Omnipaque 350 intravenous contrast. Sagittal and coronal reformatted images were obtained on the technologist's workstation. Oral contrast: No This CT examination was performed using dose optimization techniques as appropriate, variously including the following: *Automated exposure control *Adjustment of mA and/or kV according to patient size (this includes techniques or standardized protocols for targeted exams where dose is matched to indication/reason for exam; i.e. extremities or head) *Use of iterative reconstruction technique DLP: 687 mGy-cm FINDINGS: LUNG BASES: The visualized lung bases are unremarkable. LIVER, GALLBLADDER, AND BILIARY TREE: The liver is normal in size, shape, and attenuation. No focal hepatic lesion or biliary ductal dilatation is present. The gallbladder is unremarkable with no evidence of radiopaque gallstones, gallbladder wall thickening, or obvious pericholecystic inflammatory changes. PANCREAS: Unremarkable. SPLEEN: Unremarkable. ADRENAL GLANDS: Unremarkable. KIDNEYS AND URETERS: The kidneys are normal in size, shape, and attenuation. No hydronephrosis, hydroureter, or calculi seen. No perinephric stranding. BLADDER: Unremarkable. GASTROINTESTINAL TRACT: The small and large bowel are unremarkable. The appendix is unremarkable. ABDOMINAL WALL: No significant hernia is appreciated. LYMPH NODES: Normal. VASCULAR: Unremarkable. PELVIC VISCERA: Unremarkable. OSSEOUS STRUCTURES: There is no acute osseous abnormality. Vacuum disc phenomenon degenerative spurring of the L5-S1 disc level. Mild degenerative lipping at the anterior endplates of lower thoracic and lumbar vertebrae. CT/CT abdomen pelvis w IV con IMPRESSION: No significant abnormality. Fleischner guidelines were followed.
[2021-12-14 14:07] VITALS: BP 125/77; BP 180/112; PULSE 66; PULSE 82; RESP 20; TEMP 36.8; O2SAT 98; BMI 28.4
--- NOTE | 2021-12-14 14:13 | ECG_ITS ---
Test Reason : ABD PAIN Blood Pressure : / mmHG Vent. Rate : 058 BPM Atrial Rate : 058 BPM P-R Int : 172 ms QRS Dur : 086 ms QT Int : 408 ms P-R-T Axes : 073 054 042 degrees QTc Int : [address] elevation, consider early repolarization Borderline ECG No previous ECGs available Referred By: Anastasia Troncoso Electronically Signed By:SIMBA LOCKETT MD
--- NOTE | 2021-12-14 14:20 | ED_ITS ---
HPI - Abdominal Pain General Chief Complaint: Abdominal Pain Stated Complaint: ABD PAIN Time Seen by Provider: 12/14/21 14:08 Source: patient and EMS Mode of arrival: EMS Limitations: no limitations History of Present Illness HPI narrative: 46-year-old male coming [facility] aware he is currently on a [facility] [employer] with a past medical history of bipolar disorder, asthma, hypothyroidism, chronic chest pain with reports of epigastric pain which began last night after eating dinner. Patient reports pain is quite severe last night with episode of vomiting. Patient reports he was on the ground curled up with pain and he passed out due to the pain. Patient received some Protonix and milk of magnesia overnight. He reports continued pain today which was worsened after eating breakfast. Patient reports normal bowel movement today. No associated fevers, chills, urinary symptoms. Related Data Home Medications Medication Instructions Recorded Confirmed levothyroxine DAILY MRX1 01/04/21 Previous Rx's Medication Instructions Recorded acetaminophen 500 mg tablet 1,000 mg PO QID PRN fever or pain 12/26/20 (Tylenol Extra Strength) #14 tabs ibuprofen 800 mg tablet 800 mg PO Q8H PRN pain #14 tabs 12/26/20 ibuprofen 600 mg tablet 600 mg PO TID PRN pain #30 tabs 01/04/21 Allergies Allergy/AdvReac Type Severity Reaction Status Date / Time No Known Allergies Allergy Verified 03/29/21 08:43 [No Known Allergies*] Review of Systems Review of Systems Yes all other systems are reviewed and are negative Constitutional: Reports no additional constitutional complaints, Denies body ache(s), Denies chills, Denies fever(s), Denies headache(s) and Denies weakness Eyes: Reports no additional eye complaints and Denies change in vision Reports system reviewed and no additional complaints, except as documented, Denies dizziness, Denies headache(s), Denies nasal congestion, Denies nasal discharge and Denies neck pain Cardiovascular: Reports no additional cardiovascular complaints, Denies chest pain, Reports syncope, Denies leg edema and Denies dyspnea Respiratory: Reports no additional respiratory complaints, Denies cough and Denies dyspnea Gastrointestinal: Reports no additional gastrointestinal complaints, Reports abdominal pain, Denies diarrhea, Reports nausea and Reports vomiting Genitourinary: Denies urinary incontinence Musculoskeletal: Reports no additional musculoskeletal complaints, Denies back pain, Denies arthralgias, Denies joint swelling, Denies neck pain, Denies numbness and Denies tingling Skin/Breast: Reports system reviewed and no additional complaints, except as docu and Denies rash Reports system reviewed and no additional complaints, except as documented, Denies dizziness, Reports syncope, Denies headache(s), Denies numbness, Denies tingling and Denies weakness PMFSH Past Medical History Attestation statement: The following information was validated with the patient. 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 Physical Exam ED Vital Signs: Vital Signs - 24 hr 12/14/21 14:07 12/14/21 15:51 Temperature 98.3 F 97.8 F Pulse Rate 66 61 Respiratory Rate 20 18 Blood Pressure 125/77 131/78 Pulse Oximetry 98 98 Oxygen Delivery Method Room Air Room Air BMI result Body Mass Index 28.4 Const General: cooperative, healthy appearing, comfortable and no acute distress Orientation/consciousness: patient oriented x3 Limitations: no limitations HENMT Head: Yes normal to inspection Ears: hearing grossly normal bilaterally Eyes General: appearance normal, both eyes and all related structures Pupils: Equal, round and reactive pupils present Neck Neck: Yes normal visual inspection and Yes full ROM Chest Chest palpation & inspection: normal inspection of the chest Resp Effort & Inspection: normal respiratory effort Auscultation: clear to auscultation bilaterally Cardio Rate: regular rate Rhythm: regular rhythm Peripheral pulses: Peripheral pulses 2+ throughout GI Inspection: Yes normal to inspection Palpation (GI): Soft to palpation and Tenderness to palpation present (GI) (epigastric pain w.guarding ) Auscultation: normal bowel sounds General: Yes no CVA tenderness Back/Spine/Pelvis Back: no CVA tenderness Thoracic/Lumbar Spine: thoracic and lumbar spine normal to inspection Skin General skin exam: no rashes or lesions noted Neuro General: patient oriented x3 and moves all extremities Cranial nerves: Yes Equal, round and reactive pupils present Cognition (Neuro): normal cognition Gait exam (Neuro): Normal gait present Extrem General: Yes normal to inspection Course Course Course Narrative: The labs are unremarkable. CT is negative for any acute finding. Patient actually feels improved on reassessment. Abdomen is benign. ?gastritis vs GERD Probably a good idea for the patient to be started on a PPI for the next few days at the [facility]. He should return for any worrisome signs or symptoms MDM - Abdominal Pain MDM Narrative Medical decision making narrative: 46-year-old male here with several episodes of epigastric pain which occurred after eating since last night with reports of syncopal episode secondary to pain yesterday. On exam patient is epigastric tenderness with some guarding. No rebound. Will check labs, EKG, UA, CT. Consider cholecystitis, cholelithiasis, GERD, gastric ulcer Medical Records Attestation: I reviewed the patient's medical records. Lab Data Attestation: I reviewed the patient's lab results. Result diagrams: 12/14/21 14:43 12/14/21 14:44 Labs: Lab Results 12/14/21 12/14/21 12/14/21 Range/Units 14:43 14:43 14:43 WBC 7.3 (4.8-10.8) X10*3/uL RBC 4.81 (4.60-5.80) X10*6/uL Hgb 14.2 (14.0-18.0) g/dl Hct 41.6 L (42.0-52.0) % MCV 86.5 (80.0-98.0) fL MCH 29.5 (27.0-33.0) pg MCHC 34.1 (31.0-36.0) g/dl RDW 12.0 (11.0-16.0) % Plt Count 236 (160-400) X10*3/uL MPV 10.4 (9.4-12.4) fL Immature Gran % (Auto) 0.1 (0.0-0.4) % Neut % (Auto) 58.9 (45-73) % Lymph % (Auto) 25.5 (20-40) % [place] % (Auto) 12.3 H (2-11) % Eos % (Auto) 2.5 (0-4) % Baso % (Auto) 0.7 (0-2) % Lymph # (Auto) 1.9 (1.2-4.9) X10*3/uL [place] # (Auto) 0.9 (0.1-1.2) X10*3/uL Eos # (Auto) 0.2 (0.0-0.4) X10*3/uL Baso # (Auto) 0.1 (0.0-0.2) X10*3/uL Abs Immat Gran (auto) 0.01 (0.00-0.03) X10*3/uL Absolute Neuts (auto) 4.3 (2.0-8.3) x10*3/uL Absolute Nucleated RBC 0.000 (0.0-0.012) X10*3/uL Nucleated RBC % (auto) 0.0 (0.0-0.2) /100WBC Sodium (135-145) mmol/L Potassium (3.3-5.1) mmol/L Chloride (96-108) mmol/L Carbon Dioxide (22-29) mmol/L Anion Gap (12-20) BUN (9-16) mg/dL Creatinine (0.5-1.4) mg/dL Estim Creat Clear Calc Estimated GFR Random Glucose (60-115) mg/dL Lactic Acid 1.1 (0.5-2.0) mmol/L Calcium (8.4-10.2) mg/dL Magnesium (1.6-2.6) mg/dL Total Bilirubin (0.0-1.0) mg/dL Direct Bilirubin (0.0-0.5) mg/dL AST (5-37) U/L ALT (0-40) U/L Alkaline Phosphatase (39-117) U/L Troponin I High Sens < 3.5 (<3.5-35.0) ng/L Total Protein (6.5-8.0) g/dL Albumin (3.5-5.0) g/dL COVID-19 ([facility]) (Negative) COVID-19 Clin Com 12/14/21 12/14/21 Range/Units 14:43 14:44 WBC (4.8-10.8) X10*3/uL RBC (4.60-5.80) X10*6/uL Hgb (14.0-18.0) g/dl Hct (42.0-52.0) % MCV (80.0-98.0) fL MCH (27.0-33.0) pg MCHC (31.0-36.0) g/dl RDW (11.0-16.0) % Plt Count (160-400) X10*3/uL MPV (9.4-12.4) fL Immature Gran % (Auto) (0.0-0.4) % Neut % (Auto) (45-73) % Lymph % (Auto) (20-40) % [place] % (Auto) (2-11) % Eos % (Auto) (0-4) % Baso % (Auto) (0-2) % Lymph # (Auto) (1.2-4.9) X10*3/uL [place] # (Auto) (0.1-1.2) X10*3/uL Eos # (Auto) (0.0-0.4) X10*3/uL Baso # (Auto) (0.0-0.2) X10*3/uL Abs Immat Gran (auto) (0.00-0.03) X10*3/uL Absolute Neuts (auto) (2.0-8.3) x10*3/uL Absolute Nucleated RBC (0.0-0.012) X10*3/uL Nucleated RBC % (auto) (0.0-0.2) /100WBC Sodium 138 (135-145) mmol/L Potassium 4.5 (3.3-5.1) mmol/L Chloride 103 (96-108) mmol/L Carbon Dioxide 26 (22-29) mmol/L Anion Gap 14 (12-20) BUN 16 (9-16) mg/dL Creatinine 0.90 (0.5-1.4) mg/dL Estim Creat Clear Calc 118.2 Estimated GFR > 60 Random Glucose 112 (60-115) mg/dL Lactic Acid (0.5-2.0) mmol/L Calcium 9.3 (8.4-10.2) mg/dL Magnesium 2.2 (1.6-2.6) mg/dL Total Bilirubin 0.2 (0.0-1.0) mg/dL Direct Bilirubin < 0.2 (0.0-0.5) mg/dL AST 15 (5-37) U/L ALT 18 (0-40) U/L Alkaline Phosphatase 81 (39-117) U/L Troponin I High Sens (<3.5-35.0) ng/L Total Protein 7.3 (6.5-8.0) g/dL Albumin 4.7 (3.5-5.0) g/dL COVID-19 ([facility]) Negative (Negative) COVID-19 Clin Com See Note Imaging Data CT scan - abdomen: Attestation: I personally reviewed and interpreted this imaging study as follows: Radiologist's impression: FINDINGS: LUNG BASES: The visualized lung bases are unremarkable.? LIVER, GALLBLADDER, AND BILIARY TREE: The liver is normal in size, shape, and attenuation. No focal hepatic lesion or biliary ductal dilatation is present. The gallbladder is unremarkable with no evidence of radiopaque gallstones, gallbladder wall thickening, or obvious pericholecystic inflammatory changes.? PANCREAS: Unremarkable.? SPLEEN: Unremarkable.? ADRENAL GLANDS: Unremarkable.? KIDNEYS AND URETERS: The kidneys are normal in size, shape, and attenuation. No hydronephrosis, hydroureter, or calculi seen. No perinephric stranding. ? BLADDER: Unremarkable.? GASTROINTESTINAL TRACT: The small and large bowel are unremarkable. The appendix is unremarkable.? ABDOMINAL WALL: No significant hernia is appreciated.? LYMPH NODES: Normal. VASCULAR: Unremarkable. PELVIC VISCERA: Unremarkable.? OSSEOUS STRUCTURES: There is no acute osseous abnormality. Vacuum disc phenomenon degenerative spurring of the L5-S1 disc level. Mild degenerative lipping at the anterior endplates of lower thoracic and lumbar vertebrae.? CT/CT abdomen pelvis w IV con IMPRESSION: No significant abnormality.? ? Fleischner guidelines were followed. ECG Data Attestation: I personally reviewed and interpreted this ECG as follows: ECG interpretation date: 12/14/21 ECG interpretation time: 14:20 Interpretation: Sinus bradycardia with rate 58, normal AL, normal QRS, normal QT Discharge Plan Discharge Clinical Impression: Abdominal pain Patient Disposition: Xfer [facility]iatric [facility]osp Transfer Details: [facility] Prescriptions: No Action ibuprofen 800 mg tablet 800 mg PO Q8H PRN (Reason: pain) Qty: 14 0RF acetaminophen [Tylenol Extra Strength] 500 mg tablet 1,000 mg PO QID PRN (Reason: fever or pain) Qty: 14 0RF levothyroxine 150 mg tablet DAILY MRX1 ibuprofen 600 mg tablet 600 mg PO TID PRN (Reason: pain) Qty: 30 0RF
[2021-12-14] MEDS: 0.9 % Sodium Chloride 1,000 ML 999 ML IV (14:42)
[2021-12-14] MEDS: Morphine Sulfate 4 MG/ML CARTRIDGE IVPUSH (14:43)
[2021-12-14] MEDS: ondansetron HCL 4 MG/2 ML VIAL IVPUSH (14:43)
[2021-12-14 14:57] LABS: MANUAL DIFF FLAG NO
[2021-12-14 14:58] LABS: Basophils Absolute Auto 0.1 X10*3/uL (0.0-0.2); Basophils Percent Auto 0.7 % (0-2); Eosinophils Absolute Auto 0.2 X10*3/uL (0.0-0.4); Eosinophils Percent Auto 2.5 % (0-4); Hematocrit 41.6 % (42.0-52.0); Hemoglobin 14.2 g/dl (14.0-18.0); Imm Gran Abs Auto 0.01 X10*3/uL (0.00-0.03); Imm Gran Pct Auto 0.1 % (0.0-0.4); Lymphocytes Absolute Auto 1.9 X10*3/uL (1.2-4.9); Lymphocytes Percent Auto 25.5 % (20-40); Mean Corpuscular HGB Conc 34.1 g/dl (31.0-36.0); Mean Corpuscular Hemoglobin 29.5 pg (27.0-33.0); Mean Corpuscular Volume 86.5 fL (80.0-98.0); Mean Platelet Volume 10.4 fL (9.4-12.4); Monocytes Absolute Auto 0.9 X10*3/uL (0.1-1.2); Monocytes Percent Auto 12.3 % (2-11); Neutrophils Absolute Auto 4.3 x10*3/uL (2.0-8.3); Neutrophils Percent Auto 58.9 % (45-73); Platelet Count 236 X10*3/uL (160-400); Red Blood Count 4.81 X10*6/uL (4.60-5.80); White Blood Count 7.3 X10*3/uL (4.8-10.8)
[2021-12-14 15:09] LABS: Lactic Acid 1.1 mmol/L (0.5-2.0)
[2021-12-14 15:13] LABS: COVID-19 Test Negative (Negative)
[2021-12-14 15:15] LABS: Alanine Aminotransferase 18 U/L (0-40); Albumin Level 4.7 g/dL (3.5-5.0); Alkaline Phosphatase 81 U/L (39-117); Anion Gap 14 (12-20); Aspartate Amino Transferase 15 U/L (5-37); Bilirubin Direct < 0.2 mg/dL (0.0-0.5); Bilirubin Total 0.2 mg/dL (0.0-1.0); Blood Urea Nitrogen 16 mg/dL (9-16); Calcium 9.3 mg/dL (8.4-10.2); Carbon Dioxide 26 mmol/L (22-29); Chloride 103 mmol/L (96-108); Creatinine Clr Calc Pharmacy 118.2; Estimated Glomerular Filt Rate > 60; Glucose Random 112 mg/dL (60-115); Magnesium 2.2 mg/dL (1.6-2.6); Potassium 4.5 mmol/L (3.3-5.1); Sodium 138 mmol/L (135-145); Total Protein 7.3 g/dL (6.5-8.0)
[2021-12-14 15:17] LABS: Troponin-I High Sensitivity < 3.5 ng/L (<3.5-35.0)
[2021-12-14 15:51] VITALS: BP 131/78; PULSE 61; RESP 18; TEMP 36.6; O2SAT 98
[2021-12-14] MEDS: iohexoL 350 MG/ML 100 ML INFUS..BTL IV (16:22)
== END 2021-12-14 18:40 ==
PROVIDERS: Nurse Practitioner Family; Emergency Provider Emergency Medicine; PCP Pediatrics
DX: R10.9 Unspecified abdominal pain (principal); Z20.822 Contact with and (suspected) exposure to COVID-19; Z79.899 Other long term (current) drug therapy
CPT/HCPCS: 36415; 74177; 80048; 80076; 83605; 83735; 84484; 85025; 87635; 93005; 96374; 96375; 99284; 99285; J2270; J2405; Q9967